=== PATIENT | female | born 1940 | race Hispanic/Latino ===

== ENCOUNTER 2020-03-04 06:05 | Observation (INO) | payer OTHER ==
[2020-03-01 09:05] LABS: BASOPHILS % (AUTO) 0.3 % (0.0-5.0); EOSINOPHILS % (AUTO) 1.3 % (0.0-8.0); HEMATOCRIT 37.9 % (36-48); LYMPHOCYTES % (AUTO) 33.3 % (21.0-51.0); MEAN CORPUSCULAR HEMOGLOBIN 31.3 pg (27.0-33.0); MEAN CORPUSCULAR HGB CONC 31.9 g/dL (32.0-36.0); MEAN CORPUSCULAR VOLUME 97.9 fL (79-99); MONOCYTES % (AUTO) 6.6 % (3.0-13.0); NEUTROPHILS % (AUTO) 58.5 % (40.0-77.0); PLATELET COUNT (AUTO) 177 K/uL (130-400); RED BLOOD CELL COUNT(AUTO) 3.87 MIL/uL (4.00-5.50); RED CELL DISTRIBUTION WIDTH 13.2 % (11.0-15.5); WHITE BLOOD COUNT (AUTO) 3.8 K/uL (4.8-10.8)
[2020-03-01 09:14] LABS: CREATININE 0.8 mg/dL (0.5-1.5); POTASSIUM 4.2 mmol/L (3.5-5.1)
[2020-03-01 09:16] LABS: INR 0.95 (0.85-1.15); PARTIAL THROMBOPLASTIN TIME 28.7 SEC (26.3-35.5); PROTHROMBIN TIME 10.3 SEC (9.6-11.6)
[2020-03-01 11:13] VITALS: BP 159/68
[~2020-03-04] VITALS: Ht 154.9 cm; Wt 58.2 kg
[2020-03-04] VITALS (10 sets, daily range): BP systolic 132–199; BP diastolic 60–99
[~2020-03-04 06:05] MED LIST: APIX2.5T PO; CEFAZOLIN SODIUM 1 GM VIAL IVP SCH
[2020-03-04] MEDS: SODIUM CHLORIDE 0.9% 1000ML 1,000 ML IV SCH ×2 (08:38→16:07)
[2020-03-04] MEDS ORDERED: CEFAZOLIN SODIUM 1 GM VIAL ONE (10:04)
[2020-03-04] MEDS ORDERED: MIDAZOLAM HCL 1 MG/ML 2ML VIAL ONE ×2 (10:04→10:40)
[2020-03-04] MEDS ORDERED: BUPIVACAINE/PF 0.25% 30ML VIAL IJ ONE (10:04)
[2020-03-04] MEDS ORDERED: MEPERIDINE-PF 25 MG/ML SYG ONE ×2 (10:04→10:40)
[2020-03-04] MEDS ORDERED: LIDOCAINE HCL 1% MDV 50ML VIAL ONE (10:05)
--- NOTE | 2020-03-04 12:10 | NUR ---
PT RECEIVED FROM INSULATION ENGINEMAN VIA BED, AWAKE AND ALERT. DENIES CHEST PAIN OR DISCOMFORT, NO SOB OR LABORED RESPIRATIONS. PPM SITE INTACT, NO DRAINAGE OR HEMATOMA, SLING IN PLACE. PT ORIENTED TO ROOM AND CALL LIGHT. TELEMETRY MONITORING
--- NOTE | 2020-03-04 12:25 | NUR ---
DENIES DISCOMFORT, PPM SITE INTACT, NO DRAINAGE OR HEMATOMA, PULSES PRESENT.
--- NOTE | 2020-03-04 12:40 | NUR ---
PT AWAKE AND ALERT, DENIES PAIN OR DISCOMFORT, PPM SITE INTACT, NO DRAINAGE, NO HEMATOMA. PULSES PRESENT. PPM PRECAUTIONS. SLING IN PLACE
--- NOTE | 2020-03-04 13:05 | NUR ---
PATIENT AWAKE AND ORIENTED, DENIES PAIN , NO SOB OR LABORED RESPIRATIONS. PPM SITE INTACT, NO DRAINAGE OR HEMATOMA
[2020-03-04] MEDS: METOPROLOL SUCCINATE 50 MG TAB.SR.24H PO SCH (13:22)
--- NOTE | 2020-03-04 13:35 | NUR ---
AWAKE AND ALERT, DENIES PAIN, PPM SITE INTACT, FAMILY AT BEDSIDE
--- NOTE | 2020-03-04 14:05 | NUR ---
PT AWAKE AND ALERT, DENIES PAIN OR DISCOMFORT, TELEMETRY MONITORING. PPM SITE INTACT
--- NOTE | 2020-03-04 15:00 | NUR ---
PPM PT AWAKE AND ALERT, PPM SITE DRSG DRY AND INTACT, NO HEMATOMA, NO DRAINAGE. SLING IN PLACE, TELEMETRY MONITORING
[2020-03-04] MEDS: ACETAMINOPHEN-CODEINE 300/30MG TAB PO PRN (16:03)
--- NOTE | 2020-03-04 16:05 | NUR ---
PT AWAKE AND ALERT, STATES HAVING DISCOMFORT TO LEFT CHEST PPM SITE, REQUESTED 1 TABLET OF TYLENOL #3.
[2020-03-05 03:56] VITALS: BP 140/65
[2020-03-05 06:04] LABS: BASOPHILS % (AUTO) 0.4 % (0.0-5.0); EOSINOPHILS % (AUTO) 1.3 % (0.0-8.0); HEMATOCRIT 36.4 % (36-48); LYMPHOCYTES % (AUTO) 30.2 % (21.0-51.0); MEAN CORPUSCULAR HEMOGLOBIN 31.6 pg (27.0-33.0); MEAN CORPUSCULAR HGB CONC 32.7 g/dL (32.0-36.0); MEAN CORPUSCULAR VOLUME 96.8 fL (79-99); MONOCYTES % (AUTO) 9.1 % (3.0-13.0); NEUTROPHILS % (AUTO) 58.8 % (40.0-77.0); PLATELET COUNT (AUTO) 168 K/uL (130-400); RED BLOOD CELL COUNT(AUTO) 3.76 MIL/uL (4.00-5.50); RED CELL DISTRIBUTION WIDTH 13.3 % (11.0-15.5); WHITE BLOOD COUNT (AUTO) 4.5 K/uL (4.8-10.8)
[2020-03-05 06:16] LABS: CREATININE 0.8 mg/dL (0.5-1.5)
[2020-03-05 07:47] VITALS: BP 144/68
[2020-03-05] MEDS: METOPROLOL SUCCINATE 50 MG TAB.SR.24H PO SCH (08:42)
[2020-03-05] MEDS: ACETAMINOPHEN-CODEINE 300/30MG TAB PO PRN (08:42)
--- NOTE | 2020-03-05 09:50 | NUR ---
[employer] PPM INTERROGATION [facility] HERE TO PERFORM PPM INTERROGATION. I ASKED [employer] [facility] IF PATIENT WOULD NEED TO BE PROVIDED WITH AN EXTRA DEVICE TO TAKE HOME AND HE REPLIED NO THAT HE WOULD SENT THE REPORT TO DR. HDZ.
[2020-03-05 11:20] VITALS: BP 116/67
--- NOTE | 2020-03-05 16:30 | NUR ---
DISCHARGE DISCHARGE TEACHING PROVIDED TO PATIENT REGARDING RX (TYLENOL #3), RESUME HOME MED [facility] ON 03/07/20, SCHEDULED F/U APPT WITH DR. HDZ, DO NOT ELEVATED LEFT ARM ABOVE SHOULDER FOR 6 WEEKS, KEEP INCISION AND DRESSING CLEAN AND DRY FOR 5 DAYS AND LEAVE STERI-STRIPS IN PLACE. PATIENT INFORMED THAT SPONGE BATHS ARE OKAY, IMPORTANT TO KEEP LEFT UPPER CHEST INCISION CLEAN AND DRY INSTRUCTED. PATIENT PROVIDED WITH [employer] ID CARD AND BOOKLET AT TIME IF DISCHARGE. PATIENT VERBALIZED UNDERSTANDING OF DISCHARGE TEACHING.
--- NOTE | 2020-03-05 16:30 | NUR ---
1146 pt signed OJEDA Letter, I faxed OJEDA Letter to [phone] and placed in chart under consent tab
== END 2020-03-05 16:57 | disposition home or self-care (01) ==
LOC: DAH 06:05 → DAHIP 06:06 → DAH 06:06 → 4BH 12:11
PROVIDERS: ADMIT Internal Medicine; ATTEND Internal Medicine
DX: I48.0 Paroxysmal atrial fibrillation (principal); I49.5 Sick sinus syndrome; I10 Essential (primary) hypertension; Z86.73 Personal history of transient ischemic attack (TIA), and cerebral infarction without residual deficits; Z95.0 Presence of cardiac pacemaker
CPT/HCPCS: 33208; 36415 ×2; 71045; 80048 ×2; 82948; 85025 ×2; 85610; 85730; 96374; A4215; A4221; A4222; A4223; A4663; C1785; C1898 ×2; G0378 ×29; J0690; J2175 ×2; J2250 ×2; J3490 ×2; 99156; 99157

== ENCOUNTER 2020-05-01 18:35 | Emergency (ER) | payer OTHER ==
[~2020-05-01 18:35] MED LIST changes: -CEFAZOLIN SODIUM 1 GM VIAL IVP SCH
[2020-05-01 19:18] LABS: BASOPHILS % (AUTO) 0.2 % (0.0-5.0); EOSINOPHILS % (AUTO) 2.2 % (0.0-8.0); HEMATOCRIT 35.4 % (36-48); LYMPHOCYTES % (AUTO) 22.2 % (21.0-51.0); MEAN CORPUSCULAR HEMOGLOBIN 31.6 pg (27.0-33.0); MEAN CORPUSCULAR HGB CONC 32.8 g/dL (32.0-36.0); MEAN CORPUSCULAR VOLUME 96.5 fL (79-99); MONOCYTES % (AUTO) 10.8 % (3.0-13.0); NEUTROPHILS % (AUTO) 64.4 % (40.0-77.0); PLATELET COUNT (AUTO) 180 K/uL (130-400); RED BLOOD CELL COUNT(AUTO) 3.67 MIL/uL (4.00-5.50); RED CELL DISTRIBUTION WIDTH 12.6 % (11.0-15.5); WHITE BLOOD COUNT (AUTO) 4.9 K/uL (4.8-10.8)
[2020-05-01 19:30] LABS: INR 1.01 (0.85-1.15); PROTHROMBIN TIME 10.8 SEC (9.6-11.6)
[2020-05-01 19:31] LABS: PARTIAL THROMBOPLASTIN TIME 26.2 SEC (26.3-35.5)
[2020-05-01 19:35] LABS: POTASSIUM 3.9 mmol/L (3.5-5.1); TOTAL PROTEIN, SERUM 7.5 g/dL (6.0-8.3)
[2020-05-01 19:50] LABS: BILIRUBIN,TOTAL 0.1 mg/dL (0.2-1.0)
[2020-05-01] MEDS ORDERED: MORPHINE SULFATE 2 MG/ML 1ML SYG ONE ×2 (20:40→23:24)
[2020-05-01] MEDS ORDERED: ONDANSETRON HCL 4 MG/2 ML VIAL ONE (20:40)
[2020-05-01] MEDS ORDERED: BUPIVACAINE/PF 0.5% 30ML VIAL ONE (20:55)
[2020-05-01 23:22] LABS: CREATININE 0.7 mg/dL (0.5-1.5); POTASSIUM 3.7 mmol/L (3.5-5.1)
[2020-05-01] MEDS ORDERED: DEXAMETHASONE SOD PHOSPHATE 10MG/ML 1ML VIAL ONE (23:23)
== END 2020-05-02 01:48 | disposition home or self-care (01) ==
LOC: EDH 18:35
DX: G50.0 Trigeminal neuralgia (principal); I10 Essential (primary) hypertension; M79.18 Myalgia, other site
CPT/HCPCS: 20552; 36415; 70450; 80053; 85025; 85610; 85730; 96374; 96375; 96376; 99284; J1100; J2405; J3490; 80048